=== PATIENT | male | born 1955 | race Hispanic/Latino ===

== ENCOUNTER → 2020-03-04 | Outpatient (CLI) | payer MEDICARE | LOC: DX 08:46 | PROVIDERS: ATTEND Family Medicine | DX: Z01.812 Encounter for preprocedural laboratory examination (principal); Z20.822 Contact with and (suspected) exposure to COVID-19; K21.9 Gastro-esophageal reflux disease without esophagitis | CPT/HCPCS: 74246; U0002 ==

== ENCOUNTER → 2020-10-09 | Outpatient (CLI) | payer MEDICARE | LOC: US 09:55 | PROVIDERS: ATTEND Family Medicine | DX: N50.819 Testicular pain, unspecified (principal); N43.3 Hydrocele, unspecified | CPT/HCPCS: 76870; 93976 ==